=== PATIENT | male | born 1975 | race African-American/Black ===

== ENCOUNTER 2017-01-12 13:00 | Emergency (ER) | payer MEDICAID, OTHER ==
[~2017-01-12] VITALS: Ht 175.3 cm; Wt 95.0 kg
[2017-01-12 13:01] VITALS: BP 159/85; PULSE 106; RESP 17; TEMP 97.9; O2SAT 98
[2017-01-12] MEDS ORDERED: POLY10O EACH EYE (14:50)
--- NOTE | 2017-01-12 14:51 | PD ---
HPI Chief Complaint: Eye Problems/Injury Time Seen by Provider: 14:48 Travel History International Travel<30 days: No Contact w/Intl Traveler<30days: No Traveled to known affect area: No History of Present Illness HPI 41-year-old male presents to the emergency Department with complaint of bilateral eye redness, drainage, irritation, itchiness times one week. Denies injury. Denies eye pain. Reports eye irritation. Says he's been waking up in the mornings with his eyes crusted shut. Reports purulent drainage throughout the day. Started in the right eye and spread to the left. Denies change in vision. Denies fever, chills, nausea, vomiting. Has not taken any medications or tried any treatments to the base symptoms. His mother has similar symptoms. No known allergies. No other modifying factors or associated signs and symptoms. [facility] Social History Tobacco Use: No Allergies-Medications (Allergen,Severity, Reaction): Coded Allergies: No Known Allergies (Unverified , 01/12/17) Reported Meds & Prescriptions Reported Meds & Active Scripts Active Polytrim Opth Drops (Polymyxin/Trimethoprim Sulfate) 10,000-0.1 Unit/Ml-% Soln 2 Drop EACH EYE Q6HR 7 Days Review of Systems Except as stated in HPI: all other systems reviewed are Neg Physical Exam Narrative GENERAL: Well-nourished, well-developed male patient, in no acute distress; afebrile, nontoxic-appearing SKIN: Warm and dry. HEAD: Atraumatic. Normocephalic. EYES: Pupils equal and round at 3 mm with brisk reaction. PERRLA. EOMI. bilateral lid eversion with no foreign body noted. Bilateral eye with scleral erythema and mild lid edema. No orbital tenderness, erythema or cellulitis. Bilateral eye without photophobia. No consensual photophobia. No scleral icterus. Purulent drainage noted to bilateral inner canthus area. Crusting noted to bilateral upper and lower eyelashes. ENT: Mucosa pink and moist. Airway patent. NECK: Trachea midline. CARDIOVASCULAR: Regular rate. RESPIRATORY: No accessory muscle use. GASTROINTESTINAL: Rounded. NEUROLOGICAL: Awake and alert. Oriented 3. No obvious cranial nerve deficits. Motor grossly within normal limits. Normal speech. PSYCHIATRIC: Appropriate mood and affect; insight and judgment normal. Data Data Last Documented VS Vital Signs Date Time Temp Pulse Resp B/P Pulse Ox O2 Delivery O2 Flow Rate FiO2 01/12/17 13:01 97.9 106 17 159/85 98 MDM Medical Decision Making Medical Screen Exam Complete: Yes Emergency Medical Condition: Yes Medical Record Reviewed: Yes Differential Diagnosis Conjunctivitis, foreign body, allergic conjunctivitis Narrative Course 41-year-old male physical examination consistent with bilateral conjunctivitis. Patient is afebrile and nontoxic-appearing. Heart rate on physical exam approximately 80-90 bpm. Polytrim eyedrops prescribed for home. Instructed patient to follow up with ophthalmology as needed. Patient verbalizes understanding and agreement with treatment plan. Patient is medically cleared and stable for discharge. Discussed reasons to return to the emergency department. Instructed patient to follow up with primary care provider. Patient agrees with treatment plan. The patients vital signs are stable and the patient is stable for outpatient follow-up and treatment. Patient discharged home, stable and in no acute distress. Diagnosis Primary Impression: Bilateral conjunctivitis Qualified Code: H10.9 - Conjunctivitis of both eyes, unspecified conjunctivitis type Referrals: Line Service Person Primary Care Physician Patient Instructions: Conjunctivitis (ED), General Instructions Departure Forms: Tests/Procedures, Work Release Enter return to work date: Jan 14, 2017 Additional Instructions: Conjunctivitis is contagious Use antibiotic drops as prescribed Apply warm or cool compresses to both eyes for a few minutes several times daily to minimize irritation Avoid triggers, such as allergens, that may irritate your eyes Wash your hands frequently Do not share washcloths, towels, pillows, or any other material that has touched your eyes with any other household members Follow-up with your primary care provider Follow-up with ophthalmology as needed Return to the emergency department immediately with worsening of symptoms Med/Other Pt SpecificInfo: Prescription(s) given Scripts Polymyxin B-Trimethoprim Opth Drops (Polytrim Opth Drops)10,000-0.1 Unit/Ml-% Soln2 Drop EACH EYE Q6HR 7 Days Ref 0 Prov:Pema Crum 01/12/17 Disposition: 01 DISCHARGE HOME Condition: Stable Pema Crum Jan 12, 2017 14:50
== END 2017-01-12 17:22 | disposition home or self-care (01) ==
LOC: NEPB 13:00
DX: H10.9 Unspecified conjunctivitis (principal)
CPT/HCPCS: 99283